=== PATIENT | male | born 1940 | race Caucasian/White ===

== ENCOUNTER 2020-06-15 17:35 | Emergency (ER) | payer MEDICARE, SELFPAY ==
[~2020-06-15] VITALS: Ht 177.8 cm; Wt 97.5 kg
[2020-06-15 17:35] VITALS: BP_SYST 169
--- NOTE | 2020-06-15 17:35 | NUR ---
Patient to ER bed 3 to gown for evaluation. Side rails up. Report given to RODRIGO GARNICA.
--- NOTE | 2020-06-15 18:03 | NUR ---
Pt JARED from home with complaints of urinary retention after having barraza cath removed at 10am on 06/15/20. Pt c/o n/v that started right now and bladder distention.
--- NOTE | 2020-06-15 18:04 | NUR ---
# 16 FR Barraza catheter with use of sterile technique. Immediate return of 300 cc bloody urine noted. Bedside drainage bag placed below level of bladder. Urine sample collected and sent to lab. Pt tolerated procedure well. Patient arrived with barraza in place, changed due to standard of practice prior to admission.
--- NOTE | 2020-06-15 18:16 | NUR ---
ER at bedside examining patient.
[2020-06-15 18:28] LABS: BILIRUBIN,URINE NEGATIVE (NEGATIVE); BLOOD, URINE 3+ (NEGATIVE); CLARITY/URINE SL CLOUDY (CLEAR); COLOR,URINE RED (YELLOW); GLUCOSE,URINE NEGATIVE (NEGATIVE); KETONES,URINE NEGATIVE (NEGATIVE); LEUKOCYTE ESTERASE ,URINE 1+ (NEGATIVE); NITRITE, URINE NEGATIVE (NEGATIVE); PH,URINE 6.5 (5.0-8.0); PROTEIN URINE 2+ (NEGATIVE); UROBILINOGEN,URINE 0.2 (0.2-1.0)
[2020-06-15 18:36] LABS: BASOPHILS % (AUTO) 0.3 % (0.0-2.0); EOSINOPHILS # (AUTO) 0.3 K/uL (0.0-0.4); EOSINOPHILS % (AUTO) 1.6 % (0.0-4.0); HEMATOCRIT 33.6 % (36-54); HEMOGLOBIN 10.8 g/dL (14.0-18.0); LYMPHOCYTES # (AUTO) 2.1 K/uL (1.0-5.5); LYMPHOCYTES % (AUTO) 11.7 % (20.5-51.5); MEAN CORPUSCULAR HEMOGLOBIN 27 pg (27-31); MEAN CORPUSCULAR HGB CONC 32 % (32-36); MEAN CORPUSCULAR VOLUME 83 fL (79.0-98.0); MONOCYTES # (AUTO) 0.9 K/uL (0.0-1.0); MONOCYTES % (AUTO) 5.2 % (1.7-9.3); NEUTROPHILS # (AUTO) 14.6 K/uL (1.8-7.7); NEUTROPHILS % (AUTO) 81.2 % (40.0-70.0); PLATELET COUNT (AUTO) 356 K/uL (130-430); RED BLOOD CELL COUNT(AUTO) 4.03 MIL/uL (4.2-6.2); RED CELL DISTRIBUTION WIDTH 15.9 % (9.0-15.0)
[2020-06-15 18:57] LABS: ALANINE AMINOTRANSFERASE 17 U/L (12-78); ALBUMIN 2.6 g/dL (3.4-4.8); ASPARTATE AMINOTRANSFERASE 22 U/L (10-37); CALCIUM 8.1 mg/dL (8.4-11.0); CHLORIDE 97 mmol/L (98-107); CREATININE 1.72 mg/dL (0.55-1.30); GLUCOSE 147 mg/dL (70-99); POTASSIUM 3.8 mmol/L (3.5-5.1); SODIUM SERUM 132 mmol/L (136-145); TOTAL BILIRUBIN 0.9 mg/dL (0.0-1.0); UREA NITROGEN, BLOOD 12 mg/dL (8-21)
--- NOTE | 2020-06-15 19:07 | NUR ---
bedside report given to Elizabeth GARNICA.
--- NOTE | 2020-06-15 19:08 | NUR ---
Received endorsement from previous shift, [id number], breathing spontaneously at room air, not in distress, with Masters catheter attached to urine bag draining to a pinkish urine 350ml noted. Safety measures in place and continue monitor
[2020-06-15 19:14] LABS: ANION GAP 12 (5-15)
[2020-06-15 19:22] LABS: BACTERIA,URINE FEW /HPF (None Seen); RBC,URINE >100 /HPF (0-3)
[2020-06-15 19:23] LABS: MUCUS,URINE None Seen /LPF (None Seen)
--- NOTE | 2020-06-15 19:25 | NUR ---
To CT Scan department per marin in stable condition
--- NOTE | 2020-06-15 19:33 | NUR ---
Back to room, kept comfortable. Sips of water offerred
[2020-06-15] MEDS ORDERED: NACL 0.9% 1,000 ML IV ONE (20:15)
[2020-06-15] MEDS ORDERED: cefTRIAXone 1 GM in D5W 50 ML IV ONE (20:15)
[2020-06-15] MEDS ORDERED: cefTRIAXone 1 GM VIAL ONE (20:37)
--- NOTE | 2020-06-15 20:40 | NUR ---
# 20 gauge angiocath placed to right antecubital vein. Use of asceptic technique. Opsite placed over site. Blood return noted. Flushed with 10 cc of normal saline. No evidence of infiltration noted. Patient tolerated well.
--- NOTE | 2020-06-15 20:44 | NUR ---
Swabss COVID-19 and send to lab.
--- NOTE | 2020-06-15 21:15 | NUR ---
Apparently complained he is hungry, Dr. Ramos asked if the patient can eat, according to him patient can eat.
--- NOTE | 2020-06-15 21:28 | NUR ---
[place] sandwich, peach fruit and vanilla pudding served, able to feed himself.
--- NOTE | 2020-06-15 21:45 | NUR ---
Re-assesed by Dr. Ramos, treatment plan discussed with the patient and verbalized ubderstanding, for discharge
--- NOTE | 2020-06-15 22:10 | NUR ---
Total Urine output drained-1100ml
[2020-06-15 22:55] VITALS: BP_SYST 108
== END 2020-06-15 22:55 | disposition home or self-care (01) ==
LOC: SED 17:35
DX: N39.0 Urinary tract infection, site not specified (principal); R33.9 Retention of urine, unspecified; N13.9 Obstructive and reflux uropathy, unspecified; K57.90 Diverticulosis of intestine, part unspecified, without perforation or abscess without bleeding; N13.30 Unspecified hydronephrosis; K40.90 Unilateral inguinal hernia, without obstruction or gangrene, not specified as recurrent; Z20.822 Contact with and (suspected) exposure to COVID-19
CPT/HCPCS: 36415; 51702; 74176; 76376; 81000; 80053; 83605; 85025; 87040; 87086; 87426; 96365; 99285; J0696; J7030